=== PATIENT | male | born 1965 | race Caucasian/White ===

== ENCOUNTER 2017-02-08 08:11 | Day surgery (SDC) | payer BC ==
[~2017-02-08] VITALS: Ht 182.9 cm; Wt 132.0 kg
--- NOTE | 2017-02-10 07:14 | OR ---
ADMIT: 02/08/2017 RM/LOC: [facility] MR#: [id number] ACC#: [id number] [address] [place] [id number] TORI DEL[address]OSA [address] [place] [address] Operative/Delivery Room Report SEX: M AGE: 51 : 1965 SURGERY DATE: 02/08/2017 SURGEON: Jayce Hernandez MD PREOPERATIVE DIAGNOSIS: Umbilical hernia. POSTOPERATIVE DIAGNOSIS: Umbilical hernia. PROCEDURE: Repair of umbilical hernia with 6.4 cm Ventralex mesh. ANESTHESIA: General. ESTIMATED BLOOD LOSS: 10 mL. DESCRIPTION: The patient was taken to the operating room and placed supine on the operating room table. General anesthesia was established. The abdomen was prepped and draped in the standard surgical fashion. A curvilinear infraumbilical incision was made in the skin. Dissection proceeded through the subcutaneous tissue to the hernia sac. The hernia sac was dissected away from the overlying skin and back to the fascial margins. The sac was then excised from the fascial margins circumferentially with cautery. The fascial margin was clean from overlying fatty tissue. The defect measured just under 2 cm in diameter. A 6.4 cm Ventralex mesh was placed intraabdominally with good overlap of the defect. This was secured circumferentially in a transfascial manner with 0 silk suture. Once this was in good position, the umbilical skin was tacked to the subcutaneous tissue with 2-0 Vicryl suture. Deep tissue was closed with 2-0 Vicryl suture. Skin edges were approximated with 4-0 Monocryl in a subcuticular fashion and Dermabond. Local anesthetic was injected at the incision. A dressing was applied. Sponge, needle, and instrument counts were correct at the end of the case. The patient tolerated the procedure well and transferred to the recovery area in stable condition. Jayce Hernandez MD/ modl JOB #: [id number] CC: Jayce Hernandez, Attending Physician Hieu Noyola, Family Physician
== END 2017-02-08 14:30 | disposition home or self-care (01) ==
LOC: SSS 08:11
PROC: 0WUF0JZ Supplement Abdominal Wall with Synthetic Substitute, Open Approach (ICD-10-PCS; principal; 2017-02-08)
DX: K42.9 Umbilical hernia without obstruction or gangrene (principal); I10 Essential (primary) hypertension; K21.9 Gastro-esophageal reflux disease without esophagitis; F17.200 Nicotine dependence, unspecified, uncomplicated; G47.30 Sleep apnea, unspecified; E78.5 Hyperlipidemia, unspecified; Z98.890 Other specified postprocedural states; Z79.891 Long term (current) use of opiate analgesic; Z88.8 Allergy status to other drugs, medicaments and biological substances; Z79.899 Other long term (current) drug therapy